=== PATIENT | female | born 1990 | race Caucasian/White ===

== ENCOUNTER 2020-03-01 17:18 | Emergency (ER) | payer OTHER ==
[~2020-03-01] VITALS: Ht 165.1 cm; Wt 83.2 kg
[2020-03-01 17:40] VITALS: TEMP 98
[2020-03-01 18:31] LABS: COLLECTION METHOD CLEAN CATCH
[2020-03-01 18:38] LABS: MUCOUS Present /lpf; PH 5 (5-8); SQUAMOUS EPITHELIAL 0-2 /hpf; URINE APPEARANCE Clear; URINE BACTERIA Rare /hpf; URINE BILIRUBIN Negative (NEGATIVE); URINE BLOOD 2+ (NEGATIVE); URINE COLOR Yellow; URINE GLUCOSE Negative (NEGATIVE); URINE KETONE Negative (NEGATIVE); URINE LEUKOCYTE ESTERASE Negative (NEGATIVE); URINE NITRATE Negative (NEGATIVE); URINE PROTEIN(semi-quant) Negative (NEGATIVE); URINE UROBILINOGEN Negative (NEGATIVE)
[2020-03-01 18:49] LABS: BASO # 0.1 (0.0-0.2); BASO % 0.6 % (0.0-2.0); EOS # 0.6 (0.0-0.7); EOS % 5.3 % (0-4.0); GRAN # 7.5 (1.4-6.5); GRAN % 61.4 % (42.2-75.2); HEMOGLOBIN 11.8 g/dl (12.5-16.0); LYMPH # 3.2 (1.2-3.4); LYMPH % 26.4 % (20.0-51.0); MEAN CELL VOLUME 91 fl (80.0-100.0); MEAN CORPUSCULAR HEMOGLOBIN 31 pg (27.0-31.0); MEAN CORPUSCULAR HGB CONC 34 g/dl (33.0-37.0); MEAN PLATELET VOLUME 10.1 fl (7.4-10.4); MONO # 0.7 (0.1-0.6); MONO % 5.9 % (1.7-9.3); PLATELET COUNT 271 K/mm3 (130-400); RED BLOOD COUNT 3.83 M/mm3 (4.10-5.30); REDCELL DISTRIBUTION WIDTH-CV 11.7 % (11.5-14.5)
[2020-03-01 18:55] LABS: HEMATOCRIT 34.9 % (37.0-47.0)
[2020-03-01] MEDS ORDERED: DICLEGIS PO (20:31)
[2020-03-01 21:59] VITALS: BP 110/70; PULSE 70
== END 2020-03-01 21:58 | disposition home or self-care (01) ==
LOC: COL.ER 17:18
PROVIDERS: Physician Assistant
DX: O99.891 Other specified diseases and conditions complicating pregnancy (principal); R10.2 Pelvic and perineal pain; Z3A.08 8 weeks gestation of pregnancy; Z88.0 Allergy status to penicillin; Z88.1 Allergy status to other antibiotic agents
CPT/HCPCS: J7030